=== PATIENT | female | born 2000 | race Two or more races ===

== ENCOUNTER 2024-03-19 00:23 | Inpatient (IN) | payer OTHER ==
[~2024-03-19] VITALS: Ht 165.1 cm; Wt 63.5 kg
[2024-03-19] VITALS (7 sets, daily range): BP systolic 101–119; BP diastolic 52–82; O2SAT 97–98
[2024-03-19] MEDS ORDERED: MAGNESIUM SULFATE IN WATER 4 GM/100 ML PIGGYBACK IV ONE ×2 (00:29→01:00)
[2024-03-19] MEDS ORDERED: MAGNESIUM SULFATE IN WATER 0.04 GM/ML IV.SOLN IV ONE (00:29)
[2024-03-19] MEDS ORDERED: BETAMETHASONE ACETATE,SOD PHOS 30 MG/5 ML ML ONE (00:30)
[2024-03-19] MEDS ORDERED: BETAMETHASONE ACETATE,SOD PHOS 30 MG/5 ML ML IM ONE (01:00)
[2024-03-19] MEDS ORDERED: RINGERS SOLUTION,LACTATED 1,000 ML IV SCH (01:00)
[2024-03-19] MEDS ORDERED: MAGNESIUM SULFATE IN WATER 500 ML IV SCH (01:00)
[2024-03-19 01:22] LABS: HEMATOCRIT 33.2 % (36.0-45.00); HEMOGLOBIN 11.6 g/dL (12.0-15.00); MEAN CELL VOLUME 89.9 fL (80.00-100.00); MEAN CORPUSCULAR HEMOGLOBIN 31.4 pg (27.00-32.0); PLATELET COUNT 175 K/uL (150-450); RED CELL DISTRIBUTION WIDTH 14.8 % (11.5-14.5)
[2024-03-19] MEDS ORDERED: PRENATAL TABLE1 EAC1 PO (01:29)
[2024-03-19] MEDS ORDERED: IRON240 MG PO (01:29)
[2024-03-19 01:49] LABS: INR < 0.93; PARTIAL THROMBOPLASTIN TIME 22.9 SECONDS (22.0-34.0); PROTHROMBIN TIME 10.1 SECONDS (9.0-11.5)
[2024-03-19 01:57] LABS: ALBUMIN 2.7 gm/dL (3.4-5.0); BILIRUBIN TOTAL 0.18 mg/dL (0.3-1.2); CALCIUM 9.1 mg/dL (8.5-10.1); CREATININE SERUM 0.39 mg/dL (0.55-1.02); GFR 200.24; GLOBULINA 3.2 G/DL (2.4-3.5); POTASSIUM 3.84 mEq/L (3.5-5.1); TOTAL PROTEIN 5.9 gm/dL (6.4-8.2)
[2024-03-19] MEDS ORDERED: PNV,CALCIUM 72/IRON/FOLIC ACID 1 TAB TABLET PO SCH (09:00)
[2024-03-20] MEDS ORDERED: BETAMETHASONE ACETATE,SOD PHOS 30 MG/5 ML ML IM NR (01:00)
[2024-03-20 03:09] VITALS: BP 100/64
[2024-03-20 07:40] VITALS: BP 109/62
[2024-03-20] MEDS ORDERED: NIFEDIPINE 30 MG TAB.SA.OSM PO SCH (09:00)
[2024-03-20 12:21] VITALS: BP 110/69
[2024-03-20 20:28] VITALS: BP 120/60
[2024-03-21] VITALS: BP 129/76
[2024-03-21 08:00] VITALS: BP 110/79
[2024-03-21] MEDS ORDERED: NIFEDIPINE 60 MG TAB.SA.OSM PO SCH (09:00)
[2024-03-21 16:00] VITALS: BP 119/56
[2024-03-22 00:29] VITALS: BP 94/62
[2024-03-22] MEDS ORDERED: NIFEDIPINE ER60 MG PO (07:49)
[2024-03-22 08:00] VITALS: BP 111/55
== END 2024-03-22 12:56 | disposition home or self-care (01) | DRG 833 ==
LOC: LDR 00:23 → OB/GYN 00:23
PROVIDERS: ADMIT Obstetrics & Gynecology Maternal & Fetal Medicine; ATTEND Obstetrics & Gynecology Maternal & Fetal Medicine
PROC: BY4FZZZ Ultrasonography of Third Trimester, Single Fetus (ICD-10-PCS; principal; 2024-03-19)
PROC: 4A1HXCZ Monitoring of Products of Conception, Cardiac Rate, External Approach (ICD-10-PCS; 2024-03-19)
DX: O60.03 Preterm labor without delivery, third trimester (principal); Z3A.32 32 weeks gestation of pregnancy

== ENCOUNTER 2024-03-27 10:37 | Outpatient (CLI) | payer OTHER ==
[~2024-03-27 10:37] MED LIST: IRON240 MG PO; NIFEDIPINE ER60 MG PO; PRENATAL TABLE1 EAC1 PO
== END 2024-03-27 11:25 | disposition home or self-care (01) ==
LOC: NST 10:37
PROVIDERS: ATTEND Obstetrics & Gynecology Maternal & Fetal Medicine
DX: Z3A.33 33 weeks gestation of pregnancy (principal)

== ENCOUNTER 2024-04-02 23:24 | Outpatient (CLI) | payer OTHER ==
[~2024-04-02] VITALS: Ht 152.4 cm; Wt 66.7 kg
[2024-04-02 23:19] VITALS: BP 132/66
[2024-04-03 03:10] VITALS: BP 98/59
[2024-04-03 05:59] VITALS: BP 111/72; O2SAT 98
[2024-04-03] MEDS ORDERED: NIFEDIPINE 60 MG TAB.SA.OSM PO SCH (09:00)
[2024-04-03 11:26] VITALS: BP 103/60
[2024-04-03 12:07] VITALS: BP 103/60
== END 2024-04-03 13:00 | disposition home or self-care (01) ==
LOC: OBS/DEL 23:24
PROVIDERS: ATTEND Obstetrics & Gynecology
DX: O26.893 Other specified pregnancy related conditions, third trimester (principal); R10.2 Pelvic and perineal pain; Z3A.34 34 weeks gestation of pregnancy

== ENCOUNTER 2024-04-12 11:32 | Outpatient (CLI) | payer OTHER ==
[2024-04-12 11:47] VITALS: BP 112/70
== END 2024-04-12 13:21 | disposition home or self-care (01) ==
LOC: NST 11:32
PROVIDERS: ATTEND Obstetrics & Gynecology Gynecology
DX: Z3A.35 35 weeks gestation of pregnancy (principal)

== ENCOUNTER 2024-04-15 02:23 | Outpatient (CLI) | payer OTHER ==
[2024-04-15 01:43] VITALS: BP 106/66; O2SAT 100
[2024-04-15] MEDS ORDERED: RINGERS SOLUTION,LACTATED 1,000 ML IV SCH (02:30)
[2024-04-15 06:18] VITALS: BP 97/57; O2SAT 97
[2024-04-15 10:02] VITALS: BP 97/57
== END 2024-04-15 10:13 | disposition home or self-care (01) ==
LOC: OBS/DEL 02:23
PROVIDERS: ATTEND Obstetrics & Gynecology Gynecology
DX: O47.03 False labor before 37 completed weeks of gestation, third trimester (principal); Z3A.36 36 weeks gestation of pregnancy

== ENCOUNTER 2024-05-01 14:15 | Inpatient (IN) | payer OTHER ==
[~2024-05-01] VITALS: Ht 152.4 cm; Wt 3.6 kg
[2024-05-14 04:53] VITALS: BP 127/69; O2SAT 100
[2024-05-14] MEDS ORDERED: RINGERS SOLUTION,LACTATED 1,000 ML IV SCH ×2 (05:30→17:00)
[2024-05-14 06:14] LABS: HEMATOCRIT 36.9 % (36.0-45.00); HEMOGLOBIN 13.1 g/dL (12.0-15.00); MEAN CORPUSCULAR HEMOGLOBIN 31.7 pg (27.00-32.0); MEAN CORPUSCULAR HGB CONC 35.6 g/dl (32.0-36.0); PLATELET COUNT 156 K/uL (150-450); RED BLOOD COUNT 4.15 M/uL (4.00-6.00); RED CELL DISTRIBUTION WIDTH 16.1 % (11.5-14.5)
[2024-05-14 06:39] LABS: PH,URINE 6.5 (5.0-8.0); URINE APPEARANCE Clear; URINE BILIRRUBIN Negative (NEGATIVE); URINE BLOOD Negative; URINE COLOR Yellow; URINE GLUCOSE Negative (NEGATIVE); URINE KETONE Negative (NEGATIVE); URINE LEUKOCYTE Negative; URINE NITRATE Negative; URINE PROTEIN Negative (NEGATIVE); URINE UROBILINOGEN 0.2 E.U./dl
[2024-05-14 06:40] LABS: URINE BACTERIA 259.3 uL (0.0-1933)
[2024-05-14 06:42] LABS: INR < 0.93; PARTIAL THROMBOPLASTIN TIME 24.3 SECONDS (22.0-34.0); PROTHROMBIN TIME 9.8 SECONDS (9.0-11.5)
[2024-05-14 06:52] LABS: URINE RBC 0.4 uL (0.0-20.8)
[2024-05-14 06:56] LABS: ALBUMIN 2.9 gm/dL (3.4-5.0); BILIRUBIN TOTAL 0.29 mg/dL (0.3-1.2); CALCIUM 9.6 mg/dL (8.5-10.1); CREATININE SERUM 0.42 mg/dL (0.55-1.02); GFR 183.83; GLOBULINA 3.2 G/DL (2.4-3.5); POTASSIUM 3.8 mEq/L (3.5-5.1); TOTAL PROTEIN 6.1 gm/dL (6.4-8.2)
[2024-05-14 07:29] VITALS: BP 142/70
[2024-05-14] MEDS ORDERED: OXYTOCIN 500 ML IV SCH (09:00)
[2024-05-14 11:42] VITALS: BP 122/71
[2024-05-14] MEDS ORDERED: PROMETHAZINE HCL 25 MG/ML AMPUL IV ONE (12:45)
[2024-05-14] MEDS ORDERED: MEPERIDINE HCL/PF 25 MG/ML VIAL IV ONE (12:45)
[2024-05-14 15:40] VITALS: BP 121/56
[2024-05-14] MEDS ORDERED: ERYTHROMYCIN BASE OPHT 1GM EACH TUBE OP ONE (15:41)
[2024-05-14] MEDS ORDERED: OXYTOCIN 10 UNITS/ML VIAL ONE ×2 (15:41→20:29)
[2024-05-14] MEDS ORDERED: CEFAZOLIN SODIUM 1,000 MG VIAL ONE (16:53)
[2024-05-14] MEDS ORDERED: MORPHINE SULFATE 4 MG/ML CARTRIDGE IV PRN (17:00)
[2024-05-14] MEDS ORDERED: SIMETHICONE 125 MG CAPSULE PO SCH (17:00)
[2024-05-14] MEDS ORDERED: GABAPENTIN 300 MG CAPSULE PO SCH (17:00)
[2024-05-14] MEDS ORDERED: OXYTOCIN 1,000 ML IV ONE (17:15)
[2024-05-14] MEDS ORDERED: KETOROLAC TROMETHAMINE 30 MG VIAL IV SCH (18:00)
[2024-05-14] MEDS ORDERED: ONDANSETRON HCL 2 MG/ML VIAL IV SCH (18:00)
[2024-05-14] MEDS ORDERED: ACETAMINOPHEN 500 MG GEL..CAP PO SCH (18:00)
[2024-05-14] MEDS ORDERED: KETOROLAC TROMETHAMINE 30 MG VIAL ONE (20:44)
[2024-05-14 21:30] VITALS: BP 106/76
[2024-05-15] VITALS: BP 90/55
[2024-05-15 06:29] LABS: HEMATOCRIT 29.4 % (36.0-45.00); HEMOGLOBIN 10.3 g/dL (12.0-15.00); MEAN CELL VOLUME 90.7 fL (80.00-100.00); MEAN CORPUSCULAR HEMOGLOBIN 31.6 pg (27.00-32.0); MEAN CORPUSCULAR HGB CONC 34.9 g/dl (32.0-36.0); PLATELET COUNT 137 K/uL (150-450); RED BLOOD COUNT 3.25 M/uL (4.00-6.00); RED CELL DISTRIBUTION WIDTH 15.4 % (11.5-14.5)
[2024-05-15 07:56] VITALS: BP 109/72
[2024-05-15] MEDS ORDERED: OxyCODONE HCL 5 MG TABLET (ROXICODONE) PO PRN (08:00)
[2024-05-15] MEDS ORDERED: KETOROLAC TROMETHAMINE 10 MG TABLET PO SCH (08:00)
[2024-05-15] MEDS ORDERED: DOCUSATE SODIUM 100MG CAP PO SCH (09:00)
[2024-05-15] MEDS ORDERED: GABAPENTIN 300 MG CAPSULE PO SCH (13:00)
[2024-05-15 15:58] VITALS: BP 102/60
[2024-05-16] VITALS: BP 97/62
[2024-05-16] MEDS ORDERED: OxyCODONE HCL 5 MG TABLET (ROXICODONE) PO PRN (06:00)
[2024-05-16 08:08] VITALS: BP 115/66
== END 2024-05-16 13:11 | disposition home or self-care (01) | DRG 788 ==
LOC: LDR 05-13 14:15 → O/R 05-14 16:25 → OB/GYN 05-14 19:35
PROVIDERS: Obstetrics & Gynecology; ADMIT Obstetrics & Gynecology Maternal & Fetal Medicine; ATTEND Obstetrics & Gynecology Maternal & Fetal Medicine
PROC: 4A1HXCZ Monitoring of Products of Conception, Cardiac Rate, External Approach (ICD-10-PCS; 2024-05-14)
PROC: 10D00Z1 Extraction of Products of Conception, Low, Open Approach (ICD-10-PCS; principal; 2024-05-14 15:45)
DX: O82 Encounter for cesarean delivery without indication (principal); O62.2 Other uterine inertia; Z3A.40 40 weeks gestation of pregnancy; Z37.0 Single live birth

== ENCOUNTER 2024-05-07 10:34 | Outpatient (CLI) | payer OTHER | END 2024-05-07 12:26 | disposition home or self-care (01) | LOC: NST 10:34 | PROVIDERS: ATTEND Obstetrics & Gynecology Maternal & Fetal Medicine | DX: Z34.83 Encounter for supervision of other normal pregnancy, third trimester (principal) ==